=== PATIENT | male | born 2000 | race Caucasian/White ===

== ENCOUNTER 2020-11-29 08:46 | Emergency (ER) | payer OTHER ==
[~2020-11-29] VITALS: Ht 154.9 cm; Wt 77.1 kg
[2020-11-29] MEDS ORDERED: BENADRYL25 MG PO (09:21)
[2020-11-29] MEDS ORDERED: Pepcid20 MG PO (09:21)
== END 2020-11-29 09:42 | disposition home or self-care (01) ==
LOC: ER 08:46
DX: L23.7 Allergic contact dermatitis due to plants, except food (principal); Z79.899 Other long term (current) drug therapy
CPT/HCPCS: 96372; 99282-25; A9270; J1100